=== PATIENT | female | born 1950 | race Caucasian/White ===

== ENCOUNTER 2023-06-29 10:23 | Outpatient (CLI) | payer BC, SELFPAY ==
--- NOTE | ~2023-06-29 | XR_ITS ---
Left Knee Technique: AP, lateral, and oblique views were obtained. Clinical History: Status post fall Findings: No fracture or dislocation is seen. Total knee arthroplasty hardware is in place, without e vidence of hardware complication.. Soft tissues are unremarkable. No joint effusion is seen. Impression: No acute abnormality. Left knee arthroplasty in place. Reviewed, dictated and finalized at location M. [employer] Impression: No acute abnormality. Left knee arthroplasty in place.
== END 2023-06-29 10:24 | disposition home or self-care (01) ==
PROVIDERS: Visit Provider Orthopaedic Surgery
DX: Z96.652 Presence of left artificial knee joint (principal)
CPT/HCPCS: 73562

== ENCOUNTER 2023-07-03 13:01 | Emergency (ER) | payer BC, SELFPAY ==
--- NOTE | ~2023-07-03 | US_ITS ---
EXAMINATION:US venous doppler LE LT INDICATION:Left lower extremity swelling TECHNIQUE: Multiple grayscale, color flow and Doppler images of the left lower extremity deep venous systems were obtained and reviewed. COMPARISON:No prior studies for comparison. FINDINGS: The common femoral, superficial femoral and popliteal veins demonstrate normal respiratory variation, augmentation and compressibility. Color flow is also seen within the posterior tibial, pe roneal, greater saphenous and profunda veins. IMPRESSION: 1: No lower extremity deep venous thrombosis. Reviewed, dictated and finalized at location L. TRIAGE
[2023-07-03 13:30] VITALS: BP 131/81; PULSE 101; RESP 16; TEMP 36.4; O2SAT 100
== END 2023-07-03 16:07 | disposition left against medical advice (07) ==
LOC: ANHED 15:47
PROVIDERS: Emergency Provider Nurse Practitioner
DX: M79.89 Other specified soft tissue disorders (principal); Z53.21 Procedure and treatment not carried out due to patient leaving prior to being seen by health care provider
CPT/HCPCS: 93971; 99199